=== PATIENT | female | born 1950 | race Two or more races ===

== ENCOUNTER 2022-06-27 21:56 | Emergency (ER) | payer MEDICARE, OTHER ==
[2022-06-27 22:06] VITALS: BP 157/87; PULSE 102; RESP 18; TEMP 98.1; BMI 25.4
[2022-06-27] MEDS ORDERED: ACETAMINOPHEN 1000 MG/100 ML BAG IVPB ONE (23:42)
[2022-06-28] MEDS ORDERED: ACETAMINOPHEN INJECTION 100 ML IVPB ONE (00:14)
[2022-06-28 00:41] LABS: BASO % 0.9 % (0-2.0); EOS % 0.9 % (0-4.5); HEMOGLOBIN 12.6 GM/dL (10.7-15.3); LYMPH % 35.1 % (8-40); MCH 32.8 pg (25.7-33.7); MCHC 33.2 g/dl (32.0-36.0); MEAN CELL VOLUME 98.8 fl (80-96); MEAN PLT VOLUME 8.5 fl (7.5-11.1); MONO % 5.3 % (3.8-10.2); NEUT % 57.8 % (42.8-82.8); PLATELET COUNT 304 10^3/uL (134-434); RBC 3.84 M/mm3 (3.60-5.2); RDW 14.2 % (11.6-15.6); WHITE BLOOD COUNT 5.4 K/mm3 (4.0-10.0)
[2022-06-28 00:56] LABS: ACTIVATED PTT 34.3 SECONDS (25.2-36.5); INR 1.27 (0.83-1.09); PROTHROMBIN TIME (PATIENT) 14.6 SEC (9.7-13.0)
[2022-06-28 00:59] LABS: CHLORIDE 104 mmol/L (98-107); SODIUM 140 mmol/L (136-145)
[2022-06-28 01:01] LABS: CALCIUM 9.3 mg/dL (8.5-10.1)
[2022-06-28 01:02] LABS: ALBUMIN 4.2 g/dl (3.4-5.0); ANION GAP 5 MMOL/L (8-16); BLOOD UREA NITROGEN 9.5 mg/dL (7-18); CO2 31 mmol/L (21-32); GLUCOSE,RANDOM 79 mg/dL (74-106)
[2022-06-28 01:05] LABS: CREATININE 0.7 mg/dL (0.55-1.3); SGOT/AST 66 U/L (15-37); SGPT/ALT 25 U/L (13-61)
[2022-06-28 01:06] LABS: BILIRUBIN,TOTAL 0.4 mg/dL (0.2-1)
[2022-06-28 01:07] LABS: TOT PROT 8.7 g/dl (6.4-8.2)
[2022-06-28 01:08] LABS: ALK PHOS 66 U/L (45-117)
== END 2022-06-28 01:32 | disposition home or self-care (01) ==
LOC: JER 21:56
PROC: 3E033GC Introduction of Other Therapeutic Substance into Peripheral Vein, Percutaneous Approach (ICD-10-PCS; principal; 2022-06-27)
DX: R07.9 Chest pain, unspecified (principal); M25.561 Pain in right knee
CPT/HCPCS: 36415; 71045-TC-FY; 80053; 84132; 84484; 85025; 85610; 85730; 93005; 93010; 96374; 99285-25